=== PATIENT | male | born 1930 | race Caucasian/White ===

== ENCOUNTER 2016-12-15 11:36 | Inpatient (IN) | payer MEDICARE, OTHER ==
[2016-12-15] MEDS ORDERED: Docusate Sodium 100 MG Cap PO PRN (14:43)
[2016-12-15] MEDS ORDERED: Sodium Chloride 0.9% 10 ML Syringe FLUSH PRN (14:43)
[2016-12-15] MEDS ORDERED: Albuterol 0.083% 2.5 MG/3 ML Neb Soln NEB PRN (14:47)
[2016-12-15] MEDS ORDERED: Levofloxacin/Dextrose 5%-Water 250 MG in Premix Bag 1 BAG IV SCH (15:00)
[2016-12-15 15:13] LABS: BICARBONATE,ARTERIAL 22.1 mm/L (22.0-26.0); O2 DELIVERY DEVICE NASAL CANNULA; O2 SATURATION ARTERIAL 97 % (95-98); PCO2 ARTERIAL 28 mm/Hg0 (35-45); PO2 ARTERIAL 79 mm/Hg (80-100)
[2016-12-15] MEDS ORDERED: Albuterol/Ipratropium 3.0-0.5 MG/3 ML Neb Soln ONE (15:55)
[2016-12-15] MEDS: Atenolol 50 MG Tab PO SCH (19:33)
[2016-12-15] MEDS ORDERED: Acetaminophen 325 MG Tab PO PRN (19:35)
[2016-12-15] MEDS: BENZONATATE 200 MG PO SCH (19:58)
[2016-12-15] MEDS: Albuterol/Ipratropium 3.0-0.5 MG/3 ML Neb Soln NEB SCH (21:19)
[2016-12-15] MEDS: Enoxaparin 30 MG/0.3 ML Syringe SUBCUT SCH (21:19)
[2016-12-15] MEDS: Formoterol/Mometasone 200-5 MCG 8.8 GM Inhaler IH SCH (21:20)
[2016-12-16] MEDS: Levothyroxine 50 MCG Tab PO SCH (06:33)
[2016-12-16] MEDS: BENZONATATE 200 MG PO SCH ×3 (07:58→19:36)
[2016-12-16] MEDS: Atenolol 50 MG Tab PO SCH ×2 (07:59→19:36)
[2016-12-16] MEDS: amLODIPine 10 MG Tab PO SCH (07:59)
[2016-12-16] MEDS ORDERED: Tamsulosin 0.4 MG Cap.ER PO SCH ×2 (08:00→20:00)
--- NOTE | 2016-12-16 09:11 | PCM.PN ---
- General Info Date of Service: 12/16/16 Admission Dx/Problem (Free Text): COPD Exacerbation Functional Status: Reports: pain controlled, tolerating diet - Review of Systems General: Reports: Fever (low grade temp last evening.), Fatigue HEENT: Reports: rhinitis. Denies: sinus congestion Pulmonary: Reports: shortness of breath, cough, wheezing Cardiovascular: Denies: Chest Pain, Edema, Lightheadedness Gastrointestinal: Denies: Abdominal pain, Nausea, Vomiting Genitourinary: Reports: no symptoms Musculoskeletal: Reports: no symptoms Skin: Reports: no symptoms Neurological: Reports: No Symptoms - Patient Data Vitals - most recent: Last Vital Signs Temp 98.4 F 12/16/16 07:57 Pulse 68 12/16/16 07:57 Resp 18 12/16/16 07:57 BP 128/53 L 12/16/16 07:57 Pulse Ox 92 L 12/16/16 07:57 Weight - most recent: 151 lb 14.4 oz I&O - last 24 hours: Intake & Output 12/15/16 12/16/16 12/16/16 22:59 06:59 14:59 Intake Total 350 Balance 350 Lab Results last 24 hrs: Laboratory Results - last 24 hr 12/15/16 12/15/16 12/15/16 Range/Units 14:43 15:05 15:09 WBC 7.4 (5.0-10.0) 10^3/uL RBC 4.24 L (4.50-6.00) 10^6/uL Hgb 12.7 L (14.0-18.0) g/dL Hct 38.4 L (40.0-54.0) % MCV 90.6 (82.0-94.0) fL MCH 30.0 (27.0-32.0) pg MCHC 33.1 (33.0-38.0) g/dL RDW Coeff of Flor 19.2 H (11.0-15.0) % Plt Count 118 L (150-400) 10^3/uL Neut % (Auto) 67.4 (35-85) % Lymph % (Auto) 19.7 (10-55) % Hardin % (Auto) 6.2 (0-16) % Eos % (Auto) 6.2 H (0-5) % Baso % (Auto) 0.5 (0-3) % Neut # (Auto) 4.99 (1.80-7.00) 10^3/uL Lymph # (Auto) 1.46 (1.00-4.80) 10^3/uL Hardin # (Auto) 0.46 (0.00-0.80) 10^3/uL Eos # (Auto) 0.46 H (0.00-0.45) 10^3/uL Baso # (Auto) 0.04 10^3/uL ABG pH 7.51 H (7.35-7.45) ABG pCO2 28 L (35-45) mm/Hg0 ABG pO2 79 L (80-100) mm/Hg ABG HCO3 22.1 (22.0-26.0) mm/L ABG O2 Saturation 97 (95-98) % ABG Base Excess -1.0 (-2.0-3.0) O2 Delivery Device Nasal cannula Sodium 142 (136-145) mEq/L Potassium 4.6 (3.5-5.0) mEq/L Chloride 105 (98-106) mEq/L Carbon Dioxide 29 (21-32) mmol/L BUN 19 H (7-18) mg/dL Creatinine 1.7 H (0.7-1.3) mg/dL Est Cr Clr Drug Dosing 25.10 mL/min Estimated GFR (MDRD) 38 L (>=60) mL/min Glucose 106 H (75-99) mg/dL Calcium 9.4 (8.4-10.1) mg/dL C-Reactive Protein 1.0 H (0.2-0.8) mg/dL [id number] Pept 510 (0-1000) pg/nL Med Orders - Current: Current Medications Acetaminophen (Tylenol) 650 mg PO Q4H PRN PRN Reason: Fever Last Admin: 12/15/16 19:58 Dose: 650 mg Albuterol (Proventil Neb Soln) 2.5 mg NEB Q4H PRN PRN Reason: Dyspnea Albuterol/Ipratropium (Duoneb 3.0-0.5 Mg/3 Ml) 3 ml NEB TIDRT [facility] Last Admin: 12/15/16 21:19 Dose: 3 ml Amlodipine Besylate (Norvasc) 10 mg PO DAILY [facility] Last Admin: 12/16/16 07:59 Dose: 10 mg Atenolol (Tenormin) 50 mg PO BID [facility] Last Admin: 12/16/16 07:59 Dose: 50 mg Docusate Sodium (Colace) 100 mg PO BID PRN PRN Reason: Constipation Enoxaparin Sodium (Lovenox) 30 mg SUBCUT Q24H [facility] Last Admin: 12/15/16 21:19 Dose: 30 mg Levofloxacin/Dextrose 250 mg/ (Premix) 50 mls @ 50 mls/hr IV Q24H [facility] Levothyroxine Sodium (Synthroid) 50 mcg PO ACBRK [facility] Last Admin: 12/16/16 06:33 Dose: 50 mcg Mometasone Furoate/Formoterol Fumar (Dulera 200-5 Mcg) 2 puff IH BIDRT [facility] Last Admin: 12/15/16 21:20 Dose: 2 puff Ptom(Benzonatate [ (Benzonatate] 200 Mg)) 200 mg PO TID [facility] Last Admin: 12/16/16 07:58 Dose: Not Given Sodium Chloride (Saline Flush) 10 ml FLUSH ASDIRECTED PRN PRN Reason: Keep Vein Open Discontinued Medications Albuterol/Ipratropium (Duoneb 3.0-0.5 Mg/3 Ml) Confirm Administered Dose 3 ml .ROUTE .STK-MED ONE Stop: 12/15/16 15:56 Last Admin: 12/15/16 16:07 Dose: 3 ml Levofloxacin/Dextrose 250 mg/ (Premix) 50 mls @ 50 mls/hr IV Q24H [facility] Stop: 12/15/16 18:00 Last Admin: 12/15/16 15:43 Dose: 50 mls/hr - Exam General: alert, oriented HEENT: Mucous membr. moist/pink Neck: supple Lungs: Decreased breath sounds, Wheezing Cardiovascular: Regular Rate, Regular Rhythm Abdomen: bowel sounds present, soft, no tenderness Extremities: no edema Skin: warm, dry Neurological: no new focal deficit - Problem List & Annotations (1) COPD, Mild chronic obstructive pulmonary disease SNOMED Code(s): 980626943 Code(s): J44.9 - CHRONIC OBSTRUCTIVE PULMONARY DISEASE, UNSPECIFIED Status : Acute Priority: High Current Visit: No - Problem List Review Problem List Initiated/Reviewed/Updated: Yes - Assessment Assessment:: COPD Exacerbation - Plan Plan:: Patient states feeling better today. Does continue to complain of cough, mild shortness of breath at times. Appetite good. Admit labs reviewed. WBC 7.4, CRP 1.0, creatinine stable at 1.7. ProBNP at 510. Will continue RT treatments and IV Levaquin. Encourage ambulation. Possible discharge tomorrow.
[2016-12-16] MEDS: Albuterol/Ipratropium 3.0-0.5 MG/3 ML Neb Soln NEB SCH ×3 (10:05→20:42)
[2016-12-16] MEDS: Formoterol/Mometasone 200-5 MCG 8.8 GM Inhaler IH SCH ×2 (10:06→20:42)
[2016-12-16] MEDS ORDERED: Codeine/Promethazine 10-6.25 MG/5 ML Syrup 5 ML UD Cup PO PRN (15:19)
[2016-12-16] MEDS ORDERED: Levofloxacin/Dextrose 5%-Water 250 MG in Premix Bag 1 BAG IV SCH (20:00)
[2016-12-16] MEDS: Enoxaparin 30 MG/0.3 ML Syringe SUBCUT SCH (20:42)
[2016-12-17] MEDS: Levothyroxine 50 MCG Tab PO SCH (06:48)
[2016-12-17] MEDS: Atenolol 50 MG Tab PO SCH (08:01)
[2016-12-17] MEDS: amLODIPine 10 MG Tab PO SCH (08:01)
[2016-12-17] MEDS: BENZONATATE 200 MG PO SCH (08:01)
[2016-12-17] MEDS: Formoterol/Mometasone 200-5 MCG 8.8 GM Inhaler IH SCH (09:36)
[2016-12-17] MEDS: Albuterol/Ipratropium 3.0-0.5 MG/3 ML Neb Soln NEB SCH (09:36)
[2016-12-17 11:43] VITALS: BP 111/65
--- NOTE | 2016-12-17 15:00 | PCM.DCSUM1 ---
Discharge Summary - Hospital Course Free Text/Narrative:: Patient admitted by Dr. Montejo with COPD Exacerbation. Was noted to have increased wheezing with decreased air exchange. Admitted and started on IV Levaquin and nebulizer treatments. Initial labs were stable, WBC normal. CRP 1.0. BNP 510. Chest xray completed without notable pneumonia. - Discharge Data Discharge Date: 12/17/16 Discharge Disposition: Home, Self-Care 01 Condition: Fair - Discharge Diagnosis/Problem(s) (1) COPD, Mild chronic obstructive pulmonary disease SNOMED Code(s): 909361285 ICD Code: J44.9 - CHRONIC OBSTRUCTIVE PULMONARY DISEASE, UNSPECIFIED Status : Acute Priority: High Current Visit: No - Patient Summary/Data Complications: none Consults: Consultations 12/15/16 14:43 Respiratory Care Assess and Treatment [CONS] Routine Hospital Course: Patient has done well during stay. Vital signs stable. Did run low grade temp of 99.9. Did have good improvement of air exchange. No longer noted to have wheezing. Tolerating his usual activity. Appetite good. had been concerned about nocturia and flow and patient was started on Flomax. As he has been having ongoing issues with shortness of breath and cough, Daliresp was advised and patient will start this on discharge. Continue all other usual meds. - Patient Instructions Diet: Usual Diet as Tolerated Activity: As Tolerated - Discharge Plan Prescriptions/Med Rec: Roflumilast [Daliresp] 500 mcg PO DAILY #30 tablet Tamsulosin [Flomax] 0.4 mg PO BEDTIME #30 cap.er Home Medications: Home Meds Ipratropium/Albuterol Sulfate [Duoneb 0.5 mg-3 mg/3 ml Soln] 3 ml NEB TID [History] Atenolol [Tenormin] 50 mg PO BID 07/11/16 [History] Benzonatate 200 mg PO TID 12/15/16 [History] Budesonide/Formoterol [Symbicort 160-4.5 MCG] 2 inh INH BID 12/15/16 [History] Levothyroxine Sodium [Levoxyl] 50 mcg PO DAILY 12/15/16 [History] amLODIPine [Norvasc] 10 mg PO DAILY 12/15/16 [History] Roflumilast [Daliresp] 500 mcg PO DAILY #30 tablet 12/17/16 [Rx] Tamsulosin [Flomax] 0.4 mg PO BEDTIME #30 cap.er 12/17/16 [Rx] Patient Handouts: Chronic Obstructive Pulmonary Disease Exacerbation, Easy-to- Read, Chronic Obstructive Pulmonary Disease, [id number] Referrals: Flako Montejo MD [Primary Care Provider] - (See Dr. Montejo in one week) - Discharge Summary/Plan Comment DC Time >30 min.: No Discharge Summary/Plan Comment: Discharge home. Continue usual meds. Start Daliresp and Flomax. Follow up with Dr. Montejo in one week. - General Info Date of Service: 12/17/16 Admission Dx/Problem (Free Text: COPD Exacerbation Functional Status: Reports: pain controlled, tolerating diet - Review of Systems General: Reports: Weakness. Denies: Fever HEENT: Denies: ear pain, sinus congestion, sore throat Pulmonary: Denies: shortness of breath, cough, wheezing Cardiovascular: Denies: Chest Pain, Edema, Lightheadedness Gastrointestinal: Denies: Abdominal pain, Decreased appetite, Nausea, Vomiting Genitourinary: Reports: frequency Musculoskeletal: Reports: no symptoms Skin: Reports: no symptoms Neurological: Reports: No Symptoms Psychiatric: Reports: no symptoms - Patient Data Vitals - Most Recent: Last Vital Signs Temp 97.5 F 12/17/16 11:43 Pulse 68 12/17/16 11:43 Resp 16 12/17/16 11:43 BP 111/65 12/17/16 11:43 Pulse Ox 94 L 12/17/16 11:43 Weight - Most Recent: 151 lb 14.4 oz I&O - Last 24 hours: Intake & Output 12/16/16 12/17/16 12/17/16 22:59 06:59 14:59 Intake Total 560 Balance 560 Med Orders - Current: Current Medications Acetaminophen (Tylenol) 650 mg PO Q4H PRN PRN Reason: Fever Last Admin: 12/15/16 19:58 Dose: 650 mg Albuterol (Proventil Neb Soln) 2.5 mg NEB Q4H PRN PRN Reason: Dyspnea Albuterol/Ipratropium (Duoneb 3.0-0.5 Mg/3 Ml) 3 ml NEB TIDRT [facility] Last Admin: 12/17/16 09:36 Dose: 3 ml Amlodipine Besylate (Norvasc) 10 mg PO DAILY [facility] Last Admin: 12/17/16 08:01 Dose: 10 mg Atenolol (Tenormin) 50 mg PO BID [facility] Last Admin: 12/17/16 08:01 Dose: 50 mg Docusate Sodium (Colace) 100 mg PO BID PRN PRN Reason: Constipation Enoxaparin Sodium (Lovenox) 30 mg SUBCUT Q24H [facility] Last Admin: 12/16/16 20:42 Dose: 30 mg Levofloxacin/Dextrose 250 mg/ (Premix) 50 mls @ 50 mls/hr IV Q24H [facility] Last Admin: 12/16/16 19:36 Dose: 50 mls/hr Levothyroxine Sodium (Synthroid) 50 mcg PO ACBRK [facility] Last Admin: 12/17/16 06:48 Dose: 50 mcg Mometasone Furoate/Formoterol Fumar (Dulera 200-5 Mcg) 2 puff IH BIDRT [facility] Last Admin: 12/17/16 09:36 Dose: 2 puff Ptom(Benzonatate [ (Benzonatate] 200 Mg)) 200 mg PO TID [facility] Last Admin: 12/17/16 08:01 Dose: Not Given Promethazine HCl/Codeine (Phenergan With Codeine) 10 ml PO Q6H PRN PRN Reason: Cough Sodium Chloride (Saline Flush) 10 ml FLUSH ASDIRECTED PRN PRN Reason: Keep Vein Open Tamsulosin HCl (Flomax) 0.4 mg PO BEDTIME [facility] Last Admin: 12/16/16 19:36 Dose: 0.4 mg Discontinued Medications Albuterol/Ipratropium (Duoneb 3.0-0.5 Mg/3 Ml) Confirm Administered Dose 3 ml .ROUTE .STK-MED ONE Stop: 12/15/16 15:56 Last Admin: 12/15/16 16:07 Dose: 3 ml Levofloxacin/Dextrose 250 mg/ (Premix) 50 mls @ 50 mls/hr IV Q24H [facility] Stop: 12/15/16 18:00 Last Admin: 12/15/16 15:43 Dose: 50 mls/hr - Exam General: Reports: alert, cooperative HEENT: Reports: Mucous membr. moist/pink Neck: Reports: supple Lungs: Reports: Clear to auscultation, Normal respiratory effort Cardiovascular: Reports: Regular Rate, Regular Rhythm Abdomen: Reports: bowel sounds present, soft, no tenderness Extremities: Reports: no edema Skin: Reports: warm, dry Neurological: Reports: no new focal deficit *Q Meaningful Use (DIS) - VTE *Q VTE Criteria *Q: - Stroke *Q Stroke Criteria *Q: - AMI *Q AMI Criteria *Q:
== END 2016-12-17 13:30 | disposition home or self-care (01) | DRG 192 ==
LOC: UNDOADMIN 12:21 → CC.MS 12:21 → UNDOADMIN 14:43
PROVIDERS: ADMIT Family Medicine; ATTEND Family Medicine
DX: J44.1 Chronic obstructive pulmonary disease with (acute) exacerbation (principal); R35.1 Nocturia; E03.9 Hypothyroidism, unspecified; K44.9 Diaphragmatic hernia without obstruction or gangrene; I10 Essential (primary) hypertension; M19.90 Unspecified osteoarthritis, unspecified site
CPT/HCPCS: 36415; 36600; 71020; 80048; 82803; 83880; 85025; 86140; 94640; 94640-76; A9270-GY; J1650; J1956

== ENCOUNTER 2016-12-19 15:51 | Emergency (ER) | payer MEDICARE, OTHER ==
[~2016-12-19 15:51] MED LIST: traMADol 50 MG Tab PO ONE
[2016-12-19 15:59] VITALS: BP 157/76
--- NOTE | 2016-12-19 16:34 | EDM.PDOC ---
[id number] Gastrointestinal Problem Stated Complaint: left lower abd pain Time Seen by Provider: 12/19/16 16:20 - Related Data Allergies/ADRs: Allergies Allergy/AdvReac Type Severity Reaction Status Date / Time lisinopril Allergy Cough Verified 12/19/16 15:59 Home Meds: Home Meds Ipratropium/Albuterol Sulfate [Duoneb 0.5 mg-3 mg/3 ml Soln] 3 ml NEB TID [History] Atenolol [Tenormin] 50 mg PO BID 07/11/16 [History] Benzonatate 200 mg PO TID 12/15/16 [History] Budesonide/Formoterol [Symbicort 160-4.5 MCG] 2 inh INH BID 12/15/16 [History] Levothyroxine Sodium [Levoxyl] 50 mcg PO DAILY 12/15/16 [History] amLODIPine [Norvasc] 10 mg PO DAILY 12/15/16 [History] Tamsulosin [Flomax] 0.4 mg PO BEDTIME #30 cap.er 12/17/16 [Rx] ED EXAM, GI/ABD - Physical Exam Exam: See Below (CT showed no acute issues. 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 Will send home with Fleets enema for gas seen on CT, and Tramadol for acute pain) Exam Limited By: No limitations General Appearance: alert, moderate distress Course - Vital Signs Last Recorded V/S: Last Vital Signs Temp 99.2 F 12/19/16 15:54 Pulse 77 12/19/16 15:54 Resp 20 12/19/16 15:54 BP 157/76 H 12/19/16 15:54 Pulse Ox 95 12/19/16 15:54 - Orders/Labs/Meds Labs: Laboratory Tests 12/19/16 12/19/16 12/19/16 Range/Units 16:10 16:10 19:52 WBC 7.4 (5.0-10.0) 10^3/uL RBC 4.27 L (4.50-6.00) 10^6/uL Hgb 12.9 L (14.0-18.0) g/dL Hct 37.8 L (40.0-54.0) % MCV 88.5 (82.0-94.0) fL MCH 30.2 (27.0-32.0) pg MCHC 34.1 (33.0-38.0) g/dL RDW Coeff of Flor 19.1 H (11.0-15.0) % Plt Count 131 L (150-400) 10^3/uL Add Manual Diff Yes Neutrophils % (Manual) 72 (35-85) % Band Neutrophils % 2 (0-5) % Lymphocytes % (Manual) 15 L (21-55) % Monocytes % (Manual) 8 (2-12) % Eosinophils % (Manual) 3 (0-5) % Absolute Neutrophils 5.48 (1.80-7.00) 10^3/uL Lymphocytes # (Manual) 1.11 (1.00-4.80) 10^3/uL Monocytes # (Manual) 0.59 (0.00-0.80) 10^3/uL Eosinophils # (Manual) 0.22 (0.00-0.45) 10^3/uL Sodium 139 (136-145) mEq/L Potassium 4.2 (3.5-5.0) mEq/L Chloride 105 (98-106) mEq/L Carbon Dioxide 26 (21-32) mmol/L BUN 28 H (7-18) mg/dL Creatinine 1.6 H (0.7-1.3) mg/dL Est Cr Clr Drug Dosing 26.67 mL/min Estimated GFR (MDRD) 41 L (>=60) mL/min Glucose 114 H (75-99) mg/dL Calcium 9.5 (8.4-10.1) mg/dL C-Reactive Protein 2.0 H (0.2-0.8) mg/dL Urine Color Yellow (YELLOW) Urine Appearance Clear (CLEAR) Urine pH 5.5 (4.5-8.0) Ur Specific Anderson 1.011 (1.003-1.020) Urine Protein Negative (NEGATIVE) mg/dL Urine Glucose (UA) Negative (NEGATIVE) mg/dL Urine Ketones Negative (NEGATIVE) mg/dL Urine Occult Blood Negative (NEGATIVE) Urine Nitrite Negative (NEGATIVE) Urine Bilirubin Negative (NEGATIVE) Urine Urobilinogen 0.2 (0.2-1.0) EU/dL Ur Leukocyte Esterase Trace H (NEGATIVE) Urine RBC Not seen (0-5) /HPF Urine WBC 0-5 (0-5) /HPF Ur Squamous Epith Cells Occasional H (NOT SEEN) /HPF Urine Bacteria Occasional H (NOT SEEN) /HPF Meds: Medications Discontinued Medications Generic Name Dose Route Start Last Admin Trade Name Anabel PRN Reason Stop Dose Admin Hydromorphone HCl 1 mg 12/19/16 16:58 12/19/16 17:06 Dilaudid IVPUSH 12/19/16 16:59 1 mg ONETIME ONE Administration Iopamidol 100 ml 12/19/16 17:05 Isovue-300 (61%) IVPUSH 12/19/16 17:06 ONETIME ONE Ondansetron HCl 4 mg 12/19/16 16:59 12/19/16 17:03 Zofran IVPUSH 12/19/16 17:00 4 mg ONETIME ONE Administration Tramadol HCl 2 packet 12/19/16 20:51 12/19/16 21:10 Take Home: Tramadol 50 Mg, 4 Tab Pack PO 12/19/16 20:52 2 packet ONETIME ONE Administration Departure - Departure Time of Disposition: 20:55 (No acute abnormalities noted on CT) Disposition: Home, Self-Care 01 Condition: fair Clinical Impression: Gas pain Referrals: Georgie Grover PA-C [Primary Care Provider] - Additional Instructions: Will send home with Fleets enema to be given per rectum at home to relive gas pain. Insert lubricated tip into rectum slowly, and squeeze contents of bottle until empty. Please call home health nurse for any questions or concernes. <Georgie Grover - Last Filed: 12/22/16 07:24> ED HPI GI/ABDOMINAL - General Source of Information: Reports: Patient, Family () History Limitations: Reports: No limitations - History of Present Illness INITIAL COMMENTS - FREE TEXT/NARRATIVE: States that he has been having some low left sided abdominal pain for the last couple of days. It comes and goes for no reason. It is most of the left side on the lower half. Did have normal bowel movement this morning. Has history of hernia repair on that side. Pain will go down into the left groin and upper thigh at times. At times the pain is a 10 and at times it is 1. No diarrhea or constipation noted. No fever but states he will have chills at times. No vomiting and has not had a good appetite for several months. Timing/Duration: Reports: Day(s):, Intermittent Location: LLQ Quality: Reports: stabbing, radiating Associated Symptoms: Reports: loss of appetite. Denies: back pain, testicular pain, constipation, diarrhea, nausea/vomiting Past Medical History HEENT History: Reports: Cataract, Macular degeneration Cardiovascular History: Reports: None Respiratory History: Reports: COPD Gastrointestinal History: Reports: Bowel obstruction Genitourinary History: Reports: UTI, recurrent Musculoskeletal History: Reports: None Neurological History: Reports: Alzheimers disease Psychiatric History: Reports: Dementia, Depression Endocrine/Metabolic History: Reports: None Hematologic History: Reports: None Immunologic History: Reports: None Oncologic (Cancer) History: Reports: None Dermatologic History: Reports: None - Past Surgical History GI Surgical History: Reports: Hernia, inguinal Social & Family History - Family History Family Medical History: Unobtainable - Tobacco Use Smoking Status *Q: Never Smoker Years of Tobacco use: 40 Packs/Tins Daily: 1 Used Tobacco, but Quit: Yes Month Tobacco Last Used: 12/1981 - Caffeine Use Caffeine Use: Reports: None - Alcohol Use Days Per Week of Alcohol Use: 7 Number of Drinks Per Day: 1 Total Drinks Per Week: 7 - Recreational Drug Use Recreational Drug Use: No ED ROS GENERAL - Review of Systems Review Of Systems: See Below Constitutional: Reports: chills, weakness. Denies: fever Respiratory: Denies: Shortness of Breath, Cough Cardiovascular: Denies: Chest pain, Edema GI/Abdominal: Reports: Abdominal pain. Denies: Constipation, Diarrhea, Nausea, Vomiting : Denies: dysuria, flank pain Skin: Denies: bruising, rash Psychiatric: Denies: Confusion ED EXAM, GI/ABD - Physical Exam Exam: See Below Exam Limited By: No limitations General Appearance: alert, moderate distress Nose: normal inspection Throat/Mouth: No airway compromise Head: atraumatic, normocephalic Neck: normal inspection Respiratory/Chest: no respiratory distress, lungs clear, normal breath sounds Cardiovascular: regular rate, rhythm GI/Abdominal: normal bowel sounds, soft, tenderness (to the left upper and lower. More the left lower. No guarding or rigidity. No masses appreciated.) Extremities: no pedal edema Neurological: alert, oriented Skin Exam: Warm, Dry, Intact Course - Orders/Labs/Meds Labs: Laboratory Tests 12/19/16 12/19/16 12/19/16 Range/Units 16:10 16:10 19:52 WBC 7.4 (5.0-10.0) 10^3/uL RBC 4.27 L (4.50-6.00) 10^6/uL Hgb 12.9 L (14.0-18.0) g/dL Hct 37.8 L (40.0-54.0) % MCV 88.5 (82.0-94.0) fL MCH 30.2 (27.0-32.0) pg MCHC 34.1 (33.0-38.0) g/dL RDW Coeff of Flor 19.1 H (11.0-15.0) % Plt Count 131 L (150-400) 10^3/uL Add Manual Diff Yes Neutrophils % (Manual) 72 (35-85) % Band Neutrophils % 2 (0-5) % Lymphocytes % (Manual) 15 L (21-55) % Monocytes % (Manual) 8 (2-12) % Eosinophils % (Manual) 3 (0-5) % Absolute Neutrophils 5.48 (1.80-7.00) 10^3/uL Lymphocytes # (Manual) 1.11 (1.00-4.80) 10^3/uL Monocytes # (Manual) 0.59 (0.00-0.80) 10^3/uL Eosinophils # (Manual) 0.22 (0.00-0.45) 10^3/uL Sodium 139 (136-145) mEq/L Potassium 4.2 (3.5-5.0) mEq/L Chloride 105 (98-106) mEq/L Carbon Dioxide 26 (21-32) mmol/L BUN 28 H (7-18) mg/dL Creatinine 1.6 H (0.7-1.3) mg/dL Est Cr Clr Drug Dosing 26.67 mL/min Estimated GFR (MDRD) 41 L (>=60) mL/min Glucose 114 H (75-99) mg/dL Calcium 9.5 (8.4-10.1) mg/dL C-Reactive Protein 2.0 H (0.2-0.8) mg/dL Urine Color Yellow (YELLOW) Urine Appearance Clear (CLEAR) Urine pH 5.5 (4.5-8.0) Ur Specific Anderson 1.011 (1.003-1.020) Urine Protein Negative (NEGATIVE) mg/dL Urine Glucose (UA) Negative (NEGATIVE) mg/dL Urine Ketones Negative (NEGATIVE) mg/dL Urine Occult Blood Negative (NEGATIVE) Urine Nitrite Negative (NEGATIVE) Urine Bilirubin Negative (NEGATIVE) Urine Urobilinogen 0.2 (0.2-1.0) EU/dL Ur Leukocyte Esterase Trace H (NEGATIVE) Urine RBC Not seen (0-5) /HPF Urine WBC 0-5 (0-5) /HPF Ur Squamous Epith Cells Occasional H (NOT SEEN) /HPF Urine Bacteria Occasional H (NOT SEEN) /HPF Meds: Medications Discontinued Medications Generic Name Dose Route Start Last Admin Trade Name Freq PRN Reason Stop Dose Admin Hydromorphone HCl 1 mg 12/19/16 16:58 12/19/16 17:06 Dilaudid IVPUSH 12/19/16 16:59 1 mg ONETIME ONE Administration Iopamidol 100 ml 12/19/16 17:05 Isovue-300 (61%) IVPUSH 12/19/16 17:06 ONETIME ONE Ondansetron HCl 4 mg 12/19/16 16:59 12/19/16 17:03 Zofran IVPUSH 12/19/16 17:00 4 mg ONETIME ONE Administration Tramadol HCl 2 packet 12/19/16 20:51 12/19/16 21:10 Take Home: Tramadol 50 Mg, 4 Tab Pack PO 12/19/16 20:52 2 packet ONETIME ONE Administration - Re-Assessments/Exams Free Text/Narrative Re-Assessment/Exam: 12/19/16 16:51 report given to ABBI Flores. Pt will be prepping for CT abdomen/ pelvis
[2016-12-19] MEDS ORDERED: HYDROmorphone 1 MG/ML Syringe IVPUSH ONE (16:58)
[2016-12-19] MEDS ORDERED: Ondansetron 4 MG/2 ML SDV IVPUSH ONE (16:59)
[2016-12-19] MEDS ORDERED: Iopamidol 612 MG/ML 100 ML Bottle IVPUSH ONE (17:05)
[2016-12-19] MEDS ORDERED: Take Home: traMADol 50 MG, 4 Tab Pack PO ONE (20:51)
== END 2016-12-19 21:15 | disposition home or self-care (01) ==
LOC: CC.ED 15:51
DX: R14.1 Gas pain (principal); J44.9 Chronic obstructive pulmonary disease, unspecified; G30.9 Alzheimer's disease, unspecified; F02.80 Dementia in other diseases classified elsewhere, unspecified severity, without behavioral disturbance, psychotic disturbance, mood disturbance, and anxiety; F32.9 Major depressive disorder, single episode, unspecified; Z88.8 Allergy status to other drugs, medicaments and biological substances; Z79.899 Other long term (current) drug therapy; Z87.440 Personal history of urinary (tract) infections
CPT/HCPCS: 36415; 74020; 74177; 80048; 81001; 85025; 86140; 96374; 96375; 99284; A9270; J1170; J2405; Q9967; 99283

== ENCOUNTER 2017-01-09 15:15 | Inpatient (IN) | payer MEDICARE, OTHER ==
[2017-01-09] MEDS ORDERED: Sodium Chloride 0.9% 10 ML Syringe FLUSH PRN (16:04)
[2017-01-09] MEDS ORDERED: Morphine 2 MG/ML Syringe IVPUSH PRN (16:04)
[2017-01-09] MEDS ORDERED: Temazepam 15 MG Cap PO PRN (16:04)
[2017-01-09] MEDS ORDERED: Ondansetron 4 MG/2 ML SDV IV PRN (16:04)
[2017-01-09] MEDS ORDERED: Ondansetron 4 MG Tab.DIS PO PRN (16:04)
[2017-01-09] MEDS ORDERED: BENZONATATE 200 MG PO PRN (16:14)
[2017-01-09] MEDS ORDERED: Pantoprazole 40 MG Vial IVPUSH SCH (16:15)
[2017-01-09] MEDS ORDERED: Lactated Ringers 1,000 ML IV SCH (16:15)
[2017-01-09] MEDS ORDERED: Enoxaparin 30 MG/0.3 ML Syringe SUBCUT SCH ×2 (16:15→20:00)
[2017-01-09] MEDS ORDERED: Pantoprazole 40 MG Vial IVPUSH ONE (16:45)
[2017-01-09] MEDS: Sodium Chloride 0.9% 1,000 ML IV SCH (20:00)
[2017-01-09] MEDS ORDERED: Non-Formulary Medication 1 Each (Budesonide/Formoterol 2 INH) INH SCH (20:00)
[2017-01-09] MEDS: Atenolol 50 MG Tab PO SCH (21:55)
[2017-01-09] MEDS: Tamsulosin 0.4 MG Cap.ER PO SCH (21:56)
[2017-01-09] MEDS: Formoterol/Mometasone 200-5 MCG 8.8 GM Inhaler IH SCH (21:56)
[2017-01-09] MEDS: Albuterol/Ipratropium 3.0-0.5 MG/3 ML Neb Soln NEB SCH (21:58)
[2017-01-10] MEDS: Levothyroxine 50 MCG Tab PO SCH (07:37)
[2017-01-10] MEDS: Pantoprazole 40 MG Vial IVPUSH SCH ×2 (07:56→19:30)
[2017-01-10] MEDS: Enoxaparin 30 MG/0.3 ML Syringe SUBCUT SCH (08:03)
[2017-01-10] MEDS: Polyethylene Glycol 3350 Powder 17 GM Packet PO SCH (08:03)
[2017-01-10] MEDS: amLODIPine 10 MG Tab PO SCH (08:04)
[2017-01-10] MEDS: Atenolol 50 MG Tab PO SCH ×2 (08:05→19:30)
[2017-01-10] MEDS: Albuterol/Ipratropium 3.0-0.5 MG/3 ML Neb Soln NEB SCH ×3 (08:44→20:33)
[2017-01-10] MEDS: Formoterol/Mometasone 200-5 MCG 8.8 GM Inhaler IH SCH ×2 (08:44→20:33)
[2017-01-10] MEDS: Sodium Chloride 0.9% 1,000 ML IV SCH (11:19)
--- NOTE | 2017-01-10 14:23 | PCM.PN ---
- General Info Date of Service: 01/10/17 Functional Status: Reports: pain controlled, tolerating diet - Review of Systems General: Reports: No Symptoms HEENT: Reports: no symptoms Pulmonary: Reports: no symptoms Cardiovascular: Reports: No Symptoms Gastrointestinal: Reports: Abdominal pain Genitourinary: Reports: no symptoms Musculoskeletal: Reports: no symptoms Skin: Reports: no symptoms Neurological: Reports: No Symptoms Psychiatric: Reports: no symptoms - Patient Data Vitals - most recent: Last Vital Signs Temp 99.1 F 01/10/17 12:00 Pulse 73 01/10/17 12:00 Resp 20 01/10/17 12:00 BP 108/51 L 01/10/17 12:00 Pulse Ox 94 L 01/10/17 12:00 Weight - most recent: 151 lb 14.4 oz I&O - last 24 hours: Intake & Output 01/09/17 01/10/17 01/10/17 22:59 06:59 14:59 Intake Total 663 757 5753 Output Total 300 1050 250 Balance 600 -193 1346 Lab Results last 24 hrs: Laboratory Results - last 24 hr 01/09/17 01/09/17 01/09/17 Range/Units 16:22 16:22 17:45 WBC (5.0-10.0) 10^3/uL RBC (4.50-6.00) 10^6/uL Hgb (14.0-18.0) g/dL Hct (40.0-54.0) % MCV (82.0-94.0) fL MCH (27.0-32.0) pg MCHC (33.0-38.0) g/dL RDW Coeff of Flor (11.0-15.0) % Plt Count (150-400) 10^3/uL Neut % (Auto) (35-85) % Lymph % (Auto) (10-55) % [place]isco[place] % (Auto) (0-16) % Eos % (Auto) (0-5) % Baso % (Auto) (0-3) % Neut # (Auto) (1.80-7.00) 10^3/uL Lymph # (Auto) (1.00-4.80) 10^3/uL [place] # (Auto) (0.00-0.80) 10^3/uL Eos # (Auto) (0.00-0.45) 10^3/uL Baso # (Auto) 10^3/uL PT 11.9 (9.7-12.3) SEC INR 1.10 (0.92-1.18) Sodium 141 (136-145) mEq/L Potassium 4.5 (3.5-5.0) mEq/L Chloride 104 (98-106) mEq/L Carbon Dioxide 28 (21-32) mmol/L BUN 32 H (7-18) mg/dL Creatinine 1.9 H (0.7-1.3) mg/dL Est Cr Clr Drug Dosing 22.46 mL/min Estimated GFR (MDRD) 34 L (>=60) mL/min Glucose 145 H D (75-99) mg/dL Calcium 8.6 (8.4-10.1) mg/dL Magnesium 2.0 (1.8-2.4) mg/dL Total Bilirubin 0.6 (0.0-1.0) mg/dL AST 41 H (15-37) U/L ALT 39 (12-78) U/L Alkaline Phosphatase 124 H (46-116) U/L C-Reactive Protein 0.3 (0.2-0.8) mg/dL Total Protein 6.4 (6.4-8.2) g/dL Albumin 2.9 L (3.4-5.0) g/dL TSH, Ultra Sensitive (0.36-5.60) uIU/mL Urine Color Yellow (YELLOW) Urine Appearance Clear (CLEAR) Urine pH 6.5 (4.5-8.0) Ur Specific [place] 1.009 (1.003-1.020) Urine Protein Negative (NEGATIVE) mg/dL Urine Glucose (UA) Negative (NEGATIVE) mg/dL Urine Ketones Negative (NEGATIVE) mg/dL Urine Occult Blood Negative (NEGATIVE) Urine Nitrite Negative (NEGATIVE) Urine Bilirubin Negative (NEGATIVE) Urine Urobilinogen 0.2 (0.2-1.0) EU/dL Ur Leukocyte Esterase Trace H (NEGATIVE) Urine RBC Not seen (0-5) /HPF Urine WBC 0-5 (0-5) /HPF Ur Epithelial Cells Few H (NOT SEEN) /HPF 01/10/17 01/10/17 Range/Units 06:50 06:50 WBC 6.6 (5.0-10.0) 10^3/uL RBC 3.35 L (4.50-6.00) 10^6/uL Hgb 10.2 L (14.0-18.0) g/dL Hct 31.1 L (40.0-54.0) % MCV 92.8 (82.0-94.0) fL MCH 30.4 (27.0-32.0) pg MCHC 32.8 L (33.0-38.0) g/dL RDW Coeff of Flor 18.6 H (11.0-15.0) % Plt Count 81 L (150-400) 10^3/uL Neut % (Auto) 59.1 (35-85) % Lymph % (Auto) 26.8 (10-55) % Briscoe % (Auto) 8.1 (0-16) % Eos % (Auto) 5.5 H (0-5) % Baso % (Auto) 0.5 (0-3) % Neut # (Auto) 3.88 (1.80-7.00) 10^3/uL Lymph # (Auto) 1.76 (1.00-4.80) 10^3/uL Briscoe # (Auto) 0.53 (0.00-0.80) 10^3/uL Eos # (Auto) 0.36 (0.00-0.45) 10^3/uL Baso # (Auto) 0.03 10^3/uL PT (9.7-12.3) SEC INR (0.92-1.18) Sodium 143 (136-145) mEq/L Potassium 4.4 (3.5-5.0) mEq/L Chloride 108 H (98-106) mEq/L Carbon Dioxide 28 (21-32) mmol/L BUN 27 H (7-18) mg/dL Creatinine 1.9 H (0.7-1.3) mg/dL Est Cr Clr Drug Dosing 22.46 mL/min Estimated GFR (MDRD) 34 L (>=60) mL/min Glucose 94 D (75-99) mg/dL Calcium 7.7 L (8.4-10.1) mg/dL Magnesium (1.8-2.4) mg/dL Total Bilirubin 0.6 (0.0-1.0) mg/dL AST 40 H (15-37) U/L ALT 33 (12-78) U/L Alkaline Phosphatase 97 (46-116) U/L C-Reactive Protein (0.2-0.8) mg/dL Total Protein 5.4 L (6.4-8.2) g/dL Albumin 2.5 L (3.4-5.0) g/dL TSH, Ultra Sensitive 3.85 (0.36-5.60) uIU/mL Urine Color (YELLOW) Urine Appearance (CLEAR) Urine pH (4.5-8.0) Ur Specific [place] (1.003-1.020) Urine Protein (NEGATIVE) mg/dL Urine Glucose (UA) (NEGATIVE) mg/dL Urine Ketones (NEGATIVE) mg/dL Urine Occult Blood (NEGATIVE) Urine Nitrite (NEGATIVE) Urine Bilirubin (NEGATIVE) Urine Urobilinogen (0.2-1.0) EU/dL Ur Leukocyte Esterase (NEGATIVE) Urine RBC (0-5) /HPF Urine WBC (0-5) /HPF Ur Epithelial Cells (NOT SEEN) /HPF Med Orders - Current: Current Medications Albuterol/Ipratropium (Duoneb 3.0-0.5 Mg/3 Ml) 3 ml NEB TIDRT [facility] [place] Last Admin: 01/10/17 08:44 Dose: 3 ml Amlodipine Besylate (Norvasc) 10 mg PO DAILY [facility] [place] Last Admin: 01/10/17 08:04 Dose: 10 mg Atenolol (Tenormin) 50 mg PO BID [facility] [place] Last Admin: 01/10/17 08:05 Dose: 50 mg Enoxaparin Sodium (Lovenox) 30 mg SUBCUT Q24H [facility] [place] Last Admin: 01/10/17 08:03 Dose: 30 mg Sodium Chloride (Normal Saline) 1,000 mls @ 65 mls/hr IV ASDIRECTED [facility] [place] Stop: 01/11/17 12:00 Last Admin: 01/10/17 11:19 Dose: 65 mls/hr Levothyroxine Sodium (Synthroid) 50 mcg PO ACBRK [facility] [place] Last Admin: 01/10/17 07:37 Dose: 50 mcg Mometasone Furoate/Formoterol Fumar (Dulera 200-5 Mcg) 0 puff IH BIDRT [facility] [place] Last Admin: 01/10/17 08:44 Dose: 2 puff Morphine Sulfate (Morphine) 2 mg IVPUSH Q2H PRN PRN Reason: Pain (severe 7-10) Last Admin: 01/09/17 17:00 Dose: 2 mg Ptom [Benzonatate] (200 Mg)) 200 mg PO TID PRN PRN Reason: Cough Ondansetron HCl (Zofran Odt) 4 mg PO Q4H PRN PRN Reason: nausea, able to take PO Ondansetron HCl (Zofran) 4 mg IV Q4H PRN PRN Reason: Nausea/Vomiting Last Admin: 01/09/17 17:01 Dose: 4 mg Pantoprazole Sodium (Protonix Iv) 40 mg IVPUSH BID [facility] [place] Last Admin: 01/10/17 07:56 Dose: 40 mg Polyethylene Glycol (Miralax) 17 gm PO DAILY [facility] [place] Last Admin: 01/10/17 08:03 Dose: 17 gm Sodium Chloride (Saline Flush) 10 ml FLUSH ASDIRECTED PRN PRN Reason: Keep Vein Open Tamsulosin HCl (Flomax) 0.4 mg PO BEDTIME [facility] [place] Last Admin: 01/09/17 21:56 Dose: 0.4 mg Temazepam (Restoril) 15 mg PO BEDTIME PRN PRN Reason: Sleep Tramadol HCl (Ultram) 50 - 100 mg PO Q6H PRN PRN Reason: Pain Discontinued Medications Enoxaparin Sodium (Lovenox) 30 mg SUBCUT Q24H [facility] [place] Last Admin: 01/09/17 17:00 Dose: Not Given Enoxaparin Sodium (Lovenox) 30 mg SUBCUT Q24H [facility] [place] Lactated Ringer's (Ringers, Lactated) 1,000 mls @ 100 mls/hr IV ASDIRECTED [facility] [place] Last Admin: 01/09/17 16:59 Dose: 100 mls/hr Pantoprazole Sodium (Protonix Iv) 40 mg IVPUSH ONETIME ONE Stop: 01/09/17 16:46 Last Admin: 01/09/17 17:04 Dose: 40 mg - Exam General: alert, oriented, cooperative, no acute distress Lungs: Clear to auscultation, Normal respiratory effort Cardiovascular: Regular Rate, Regular Rhythm Abdomen: bowel sounds present, soft, no distension, tenderness (LUQ) Back Exam: Normal Inspection, Full Range of Motion Extremities: no edema Peripheral Pulses: 2+: Posterior Tibial (L), Posterior Tibial (R), Dorsalis Pedis (L), Dorsalis Pedis (R) Skin: warm, dry, intact Neurological: no new focal deficit Psy/Mental Status: alert, normal affect, normal mood - Problem List Review Problem List Initiated/Reviewed/Updated: Yes - My Orders Last 24 Hours: My Active Orders 01/09/17 17:39 Abdomen Pelvis wo Cont [CT] Stat Chest wo Cont [CT] Routine 01/09/17 17:45 Sodium Chloride 0.9% [Normal Saline] 1,000 ml IV ASDIRECTED 01/11/17 05:00 CBC WITH AUTO DIFF [HEME] DAILY CMP [COMPREHENSIVE METABOLIC PN,CMP] [CHEM] DAILY 01/12/17 05:00 CBC WITH AUTO DIFF [HEME] DAILY CMP [COMPREHENSIVE METABOLIC PN,CMP] [CHEM] DAILY 01/13/17 05:00 CBC WITH AUTO DIFF [HEME] DAILY CMP [COMPREHENSIVE METABOLIC PN,CMP] [CHEM] DAILY - Plan Plan:: This patient is am 86 year old male that was admitted for abdominal pain and the not being able to care for him at home. The patient has history of dementia and is unsafe at home. Patient today is alert and oriented. The patient does report he continues to have left upper quad pain. Patient denies lugo , dizziness, n, v, d, f, urinary/bowel changes. Patient labs are unremarkable and unchanged from previous. CBC unremarkable. Bun yesterday was 32, today 27. CR yesterday was 1.9, today 1.9. Will continue same treatment plan of managing pain.
[2017-01-10] MEDS: traMADol 50 MG Tab PO PRN (15:31)
[2017-01-10] MEDS: Tamsulosin 0.4 MG Cap.ER PO SCH (19:30)
[2017-01-11] MEDS: Sodium Chloride 0.9% 1,000 ML IV SCH (03:09)
[2017-01-11] MEDS: Levothyroxine 50 MCG Tab PO SCH (07:13)
[2017-01-11] MEDS: Pantoprazole 40 MG Vial IVPUSH SCH ×2 (07:22→20:08)
[2017-01-11] MEDS: Polyethylene Glycol 3350 Powder 17 GM Packet PO SCH (07:25)
[2017-01-11] MEDS: Enoxaparin 30 MG/0.3 ML Syringe SUBCUT SCH (07:25)
[2017-01-11] MEDS: amLODIPine 10 MG Tab PO SCH (07:26)
[2017-01-11] MEDS: Atenolol 50 MG Tab PO SCH ×2 (07:26→20:08)
[2017-01-11] MEDS: traMADol 50 MG Tab PO PRN (07:26)
--- NOTE | 2017-01-11 08:15 | PCM.PN ---
- General Info Date of Service: 01/11/17 Functional Status: Reports: pain controlled (Patient reports his pain is improving. ) - Review of Systems General: Reports: No Symptoms HEENT: Reports: no symptoms Pulmonary: Reports: no symptoms Cardiovascular: Reports: No Symptoms Gastrointestinal: Reports: No symptoms Genitourinary: Reports: no symptoms Musculoskeletal: Reports: no symptoms Skin: Reports: no symptoms Neurological: Reports: No Symptoms Psychiatric: Reports: no symptoms - Patient Data Vitals - most recent: Last Vital Signs Temp 98.5 F 01/11/17 07:31 Pulse 71 01/11/17 07:31 Resp 20 01/11/17 07:31 BP 114/66 01/11/17 07:31 Pulse Ox 92 L 01/11/17 07:31 Weight - most recent: 155 lb 9.6 oz I&O - last 24 hours: Intake & Output 01/10/17 01/11/17 01/11/17 22:59 06:59 14:59 Intake Total 320 2603 Output Total 175 700 Balance 145 1903 Lab Results last 24 hrs: Laboratory Results - last 24 hr 01/11/17 01/11/17 Range/Units 07:20 07:20 WBC 6.4 (5.0-10.0) 10^3/uL RBC 3.41 L (4.50-6.00) 10^6/uL Hgb 10.2 L (14.0-18.0) g/dL Hct 31.8 L (40.0-54.0) % MCV 93.3 (82.0-94.0) fL MCH 29.9 (27.0-32.0) pg MCHC 32.1 L (33.0-38.0) g/dL RDW Coeff of Flor 18.7 H (11.0-15.0) % Plt Count 71 L (150-400) 10^3/uL Add Manual Diff Yes Neutrophils % (Manual) 69 (35-85) % Band Neutrophils % 5 (0-5) % Lymphocytes % (Manual) 22 (21-55) % Monocytes % (Manual) 2 (2-12) % Eosinophils % (Manual) 2 (0-5) % Absolute Neutrophils 4.74 (1.80-7.00) 10^3/uL Lymphocytes # (Manual) 1.41 (1.00-4.80) 10^3/uL Monocytes # (Manual) 0.13 (0.00-0.80) 10^3/uL Eosinophils # (Manual) 0.13 (0.00-0.45) 10^3/uL Platelet Estimate Decreased L (ADEQUATE) Sodium 142 (136-145) mEq/L Potassium 4.3 (3.5-5.0) mEq/L Chloride 108 H (98-106) mEq/L Carbon Dioxide 24 (21-32) mmol/L BUN 26 H (7-18) mg/dL Creatinine 1.8 H (0.7-1.3) mg/dL Est Cr Clr Drug Dosing 23.71 mL/min Estimated GFR (MDRD) 36 L (>=60) mL/min Glucose 96 (75-99) mg/dL Calcium 7.5 L (8.4-10.1) mg/dL Total Bilirubin 0.7 (0.0-1.0) mg/dL AST 41 H (15-37) U/L ALT 34 (12-78) U/L Alkaline Phosphatase 102 (46-116) U/L Total Protein 5.5 L (6.4-8.2) g/dL Albumin 2.5 L (3.4-5.0) g/dL Med Orders - Current: Current Medications Albuterol/Ipratropium (Duoneb 3.0-0.5 Mg/3 Ml) 3 ml NEB TIDRT [facility] Last Admin: 01/10/17 20:33 Dose: 3 ml Amlodipine Besylate (Norvasc) 10 mg PO DAILY [facility] Last Admin: 01/11/17 07:26 Dose: 10 mg Atenolol (Tenormin) 50 mg PO BID [facility] Last Admin: 01/11/17 07:26 Dose: 50 mg Enoxaparin Sodium (Lovenox) 30 mg SUBCUT Q24H [facility] Last Admin: 01/11/17 07:25 Dose: 30 mg Levothyroxine Sodium (Synthroid) 50 mcg PO ACBRK [facility] Last Admin: 01/11/17 07:13 Dose: 50 mcg Mometasone Furoate/Formoterol Fumar (Dulera 200-5 Mcg) 0 puff IH BIDRT [facility] Last Admin: 01/10/17 20:33 Dose: 2 puff Morphine Sulfate (Morphine) 2 mg IVPUSH Q2H PRN PRN Reason: Pain (severe 7-10) Last Admin: 01/09/17 17:00 Dose: 2 mg Ptom [Benzonatate] (200 Mg)) 200 mg PO TID PRN PRN Reason: Cough Ondansetron HCl (Zofran Odt) 4 mg PO Q4H PRN PRN Reason: nausea, able to take PO Ondansetron HCl (Zofran) 4 mg IV Q4H PRN PRN Reason: Nausea/Vomiting Last Admin: 01/09/17 17:01 Dose: 4 mg Pantoprazole Sodium (Protonix Iv) 40 mg IVPUSH BID [facility] Last Admin: 01/11/17 07:22 Dose: 40 mg Polyethylene Glycol (Miralax) 17 gm PO DAILY [facility] Last Admin: 01/11/17 07:25 Dose: 17 gm Sodium Chloride (Saline Flush) 10 ml FLUSH ASDIRECTED PRN PRN Reason: Keep Vein Open Tamsulosin HCl (Flomax) 0.4 mg PO BEDTIME [facility] Last Admin: 01/10/17 19:30 Dose: 0.4 mg Temazepam (Restoril) 15 mg PO BEDTIME PRN PRN Reason: Sleep Tramadol HCl (Ultram) 50 - 100 mg PO Q6H PRN PRN Reason: Pain Last Admin: 01/11/17 07:26 Dose: 100 mg Discontinued Medications Enoxaparin Sodium (Lovenox) 30 mg SUBCUT Q24H [facility] Last Admin: 01/09/17 17:00 Dose: Not Given Enoxaparin Sodium (Lovenox) 30 mg SUBCUT Q24H [facility] Lactated Ringer's (Ringers, Lactated) 1,000 mls @ 100 mls/hr IV ASDIRECTED [facility] Last Admin: 01/09/17 16:59 Dose: 100 mls/hr Sodium Chloride (Normal Saline) 1,000 mls @ 65 mls/hr IV ASDIRECTED [facility] Stop: 01/11/17 12:00 Last Admin: 01/11/17 03:09 Dose: 65 mls/hr Pantoprazole Sodium (Protonix Iv) 40 mg IVPUSH ONETIME ONE Stop: 01/09/17 16:46 Last Admin: 01/09/17 17:04 Dose: 40 mg - Exam General: alert, oriented, cooperative, no acute distress Neck: supple Lungs: Clear to auscultation, Normal respiratory effort Cardiovascular: Regular Rate, Regular Rhythm, No Murmurs Abdomen: soft, tenderness (mild LUQ. improved from yesterday), other (pain of the LUQ is worse with moving of the abdominal area. ) Back Exam: Normal Inspection, Full Range of Motion. No: CVA Tenderness (L), CVA Tenderness (R) Extremities: no edema, normal pulses, no tenderness/swelling, no clubbing, no cyanosis, no calf tenderness Peripheral Pulses: 2+: Carotid (L), Carotid (R), Radial (L), Radial (R), Posterior Tibial (L), Posterior Tibial (R), Dorsalis Pedis (L), Dorsalis Pedis ( R) Skin: warm, dry, intact Neurological: no new focal deficit Psy/Mental Status: alert, normal affect, normal mood - Problem List Review Problem List Initiated/Reviewed/Updated: Yes - My Orders Last 24 Hours: My Active Orders 01/12/17 05:00 CBC WITH AUTO DIFF [HEME] DAILY CMP [COMPREHENSIVE METABOLIC PN,CMP] [CHEM] DAILY 01/13/17 05:00 CBC WITH AUTO DIFF [HEME] DAILY CMP [COMPREHENSIVE METABOLIC PN,CMP] [CHEM] DAILY - Plan Plan:: This patient is am 86 year old male that was admitted for abdominal pain and the not being able to care for him at home. The patient has history of dementia and is unsafe at home. Patient today is alert and oriented. The patient does report he continues to have left upper quad pain. Patient denies lugo , dizziness, n, v, d, f, urinary/bowel changes. Patient labs are unremarkable and unchanged from previous. CBC unremarkable. Bun yesterday was 32, today 27. CR yesterday was 1.9, today 1.9. Will continue same treatment plan of managing pain. 01/11/17 0810 This patient is am 86 year old male that was admitted for abdominal pain and the not being able to care for him at home. The patient has history of dementia and is unsafe at home. Patient today is alert and oriented. The patient does report he continues to have left upper quad pain, but improving today. Patient denies lugo, dizziness, n, v, d, f, urinary/bowel changes. Patient labs are unremarkable. His platelets are down to 71, has chronic history of being low, will continue to monitor. CBC unremarkable. Bun yesterday was 32, today 27. CR yesterday was 1.9, today 1.8. Will continue same treatment plan of managing pain. This patient is unsafe to go home, as his can not care for him. The patient weight is up 3lbs today from yesterday. He does not exhibit edema on exam, lungs are clear. I have stopped his fluids.
[2017-01-11] MEDS: Formoterol/Mometasone 200-5 MCG 8.8 GM Inhaler IH SCH ×2 (08:57→20:08)
[2017-01-11] MEDS: Albuterol/Ipratropium 3.0-0.5 MG/3 ML Neb Soln NEB SCH ×3 (08:57→20:08)
[2017-01-11] MEDS: Tamsulosin 0.4 MG Cap.ER PO SCH (20:06)
[2017-01-12] MEDS: Levothyroxine 50 MCG Tab PO SCH (06:53)
[2017-01-12] MEDS: Enoxaparin 30 MG/0.3 ML Syringe SUBCUT SCH (08:29)
[2017-01-12] MEDS: Polyethylene Glycol 3350 Powder 17 GM Packet PO SCH (08:29)
[2017-01-12] MEDS: amLODIPine 10 MG Tab PO SCH (08:29)
[2017-01-12] MEDS: Pantoprazole 40 MG Vial IVPUSH SCH ×2 (08:31→19:34)
[2017-01-12] MEDS: Atenolol 50 MG Tab PO SCH ×2 (08:31→19:33)
[2017-01-12] MEDS: Albuterol/Ipratropium 3.0-0.5 MG/3 ML Neb Soln NEB SCH ×3 (09:46→20:43)
[2017-01-12] MEDS: Formoterol/Mometasone 200-5 MCG 8.8 GM Inhaler IH SCH ×2 (09:47→20:44)
[2017-01-12] MEDS: Calcium Carbonate/Vitamin D3 1250 MG-200 Unit Tab PO SCH ×2 (11:40→17:18)
[2017-01-12] MEDS: Tamsulosin 0.4 MG Cap.ER PO SCH (19:33)
--- NOTE | 2017-01-12 20:11 | PN ---
DATE: 01/12/2017 S: Jacob is an 86-year-old male, who was admitted to the hospital with the concerns of some abdominal pain and weakness. His did not feel she could take care of him at home any more at that point in time. He has a history of dementia and felt that he is unsafe. A complete workup was done. No abnormalities were noted. The patient is currently awaiting placement to [facility], which sounds like he is able to be transferred tomorrow. He denies any concerns and states that he is tired laying and sitting in the bed and would like to be more ambulatory. O: VITAL SIGNS: Blood pressure is 128/54, O2 is 93% on room air, respiratory rate is 17, pulse is 75, and temp is afebrile at 98.1. GENERAL: Pleasant cooperative male. He is sitting in a recliner upon my entrance into his room. He does not really appear to be in any distress at this point in time. HEENT: Grossly unremarkable. LUNGS: Clear to auscultation. I did not hear any adventitious sounds. Respirations nonlabored. CARDIAC: Regular rate and rhythm. ABDOMEN: Soft. Bowel sounds are present, normoactive. No organomegaly. No guarding or rigidity. He does have what appears to be a cystic-type circumferential lesion that is on the skin in the right upper quadrant. Nontender to the touch. EXTREMITIES: No pedal edema is noted. ASSESSMENT: 1. WEAKNESS. 2. VULNERABLE ADULT. 3. RESOLVED ABDOMINAL PAIN. P: We will look at admission to [facility] tomorrow. We will put him on calcium plus vitamin D secondary to calcium level at 7.7. We will also order physical therapy for strengthening and conditioning at this point in time. Mr. James was notified of the current treatment plan. ANCA/ROM /[id number]
[2017-01-13] MEDS: Levothyroxine 50 MCG Tab PO SCH (06:21)
[2017-01-13] MEDS: Polyethylene Glycol 3350 Powder 17 GM Packet PO SCH (07:28)
[2017-01-13] MEDS: Calcium Carbonate/Vitamin D3 1250 MG-200 Unit Tab PO SCH (07:35)
[2017-01-13] MEDS: Atenolol 50 MG Tab PO SCH (07:35)
[2017-01-13] MEDS: Pantoprazole 40 MG Vial IVPUSH SCH (07:35)
[2017-01-13] MEDS: amLODIPine 10 MG Tab PO SCH (07:36)
[2017-01-13] MEDS: Enoxaparin 30 MG/0.3 ML Syringe SUBCUT SCH (07:36)
[2017-01-13 07:41] VITALS: BP 118/58
[2017-01-13] MEDS: Albuterol/Ipratropium 3.0-0.5 MG/3 ML Neb Soln NEB SCH (09:28)
[2017-01-13] MEDS: Formoterol/Mometasone 200-5 MCG 8.8 GM Inhaler IH SCH (09:29)
--- NOTE | 2017-01-14 04:21 | DISCH ---
FINAL DIAGNOSES: 1. Generalized weakness. 2. Vulnerable adult. 3. Abdominal pain, resolved. HISTORY OF PRESENT ILLNESS: Jacob is an 86-year-old male who was initially admitted to the hospital on 01/09/2017 secondary to abdominal pain. Further evaluation was completed with no further cause of abdominal pain. Abdominal pain had resolved. He had been having some recent falls as well and some generalized weakness. was present and did not feel that she could continue to take care of him at home. He was just waiting for prison placement. LABORATORY DATA: On 01/12/2017, white blood count was 5900, hemoglobin 11.0, hematocrit of 32.6. CMP showed a creatinine of 1.8 with a BUN of 25, calcium is 7.7, AST 45, alkaline phosphatase 127. Urinalysis was negative. CT of the abdomen and pelvis was negative. Chest x-ray was stable. HOSPITAL COURSE: Jacob had an uneventful hospital stay. He has been doing quite well. He has had no setbacks, no recent fevers, no change in status. DISCHARGE MEDICATIONS: and to resume all home medications. DISCHARGE INSTRUCTIONS: Admission to [facility] today. ANCA/ROM /[id number]
== END 2017-01-13 10:45 | DRG 392 ==
LOC: CC.MS 15:15 → UNDOADMIN 15:15 → CC.MS 16:04
PROVIDERS: ADMIT Physician Assistant Medical; ATTEND Family Medicine
DX: R10.12 Left upper quadrant pain (principal); R53.1 Weakness; K59.00 Constipation, unspecified; J44.9 Chronic obstructive pulmonary disease, unspecified; J45.909 Unspecified asthma, uncomplicated; I10 Essential (primary) hypertension; R16.1 Splenomegaly, not elsewhere classified; Z87.891 Personal history of nicotine dependence; F03.90 Unspecified dementia, unspecified severity, without behavioral disturbance, psychotic disturbance, mood disturbance, and anxiety; R29.6 Repeated falls; Z79.899 Other long term (current) drug therapy; Z88.8 Allergy status to other drugs, medicaments and biological substances
CPT/HCPCS: 36415; 71020; 71250; 74176; 80053; 81001; 83735; 84443; 85025; 85610; 86140; 94640; 94640-76; 97161-GP; A9270-GY; C9113; J1650; J2270; J2405; J7030; J7120

== ENCOUNTER 2017-01-30 13:06 | Emergency (ER) | payer MEDICARE, OTHER ==
[2017-01-30 13:26] VITALS: BP 118/57
[2017-01-30] MEDS ORDERED: Morphine 2 MG/ML Syringe IVPUSH ONE ×2 (13:33→15:27)
[2017-01-30] MEDS ORDERED: Ondansetron 4 MG/2 ML SDV IVPUSH STA ×2 (13:33→15:27)
[2017-01-30] MEDS ORDERED: Sodium Chloride 0.9% 500 ML IV SCH (13:45)
--- NOTE | 2017-01-30 13:53 | EDM.PDOC ---
ED HPI GENERAL MEDICAL PROBLEM - General Chief Complaint: Gastrointestinal Problem Stated Complaint: ABD PAIN Time Seen by Provider: 01/30/17 13:20 Source of Information: Reports: Patient, Family, Senior Care Records, Old Records, RN History Limitations: Reports: Altered Mental Status - History of Present Illness INITIAL COMMENTS - FREE TEXT/NARRATIVE: This is an 86 year old demented male patient that presents to the ER via ambulance from care home. This patient is known to the facility and has a history of chronic adbominal pain with multiple tests without significant findings. The retirement reported the patient woke up this morning with an increase in abdmominal pain. It is documented that the patient did not want to go to the hospital this morning. A call was made to patient PCP. Morphine injection was ordered for patient pain. RN and myself have reviewed patient MAR , does not appear this was given today. 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 The patient is not oriented. This is his baseline dementia per at bedside. Onset: Other (Chronic, worse this morning. ) Duration: Chronic Location: Reports: Abdomen Improves with: Reports: None Worsens with: Reports: None Associated Symptoms: Reports: Loss of Appetite. Denies: Confusion, Chest Pain, Cough, cough w sputum, Diaphoresis, Fever/Chills, Headaches, Malaise, Nausea/ Vomiting, Rash, Seizure, Shortness of Breath, Syncope, Weakness Middle Abdomen Pain Score (Numeric/FACES): 7 - Related Data Allergies Allergy/AdvReac Type Severity Reaction Status Date / Time lisinopril Allergy Cough Verified 01/30/17 13:26 Home Meds: Home Meds Albuterol/Ipratropium [DuoNeb 3.0-0.5 MG/3 ML] 3 ml NEB TIDRT #30 neb 01/13/17 [ Rx] Atenolol [Tenormin] 50 mg PO BID #60 01/13/17 [Rx] Benzonatate 200 mg PO TID PRN #30 01/13/17 [Rx] Budesonide/Formoterol [Symbicort 160-4.5 MCG] 2 inh INH BID #1 01/13/17 [Rx] Levothyroxine Sodium [Levoxyl] 50 mcg PO DAILY #30 01/13/17 [Rx] Polyethylene Glycol 3350 [MiraLAX] 17 gm PO DAILY #238 gm 01/13/17 [Rx] Tamsulosin [Flomax] 0.4 mg PO BEDTIME #30 cap.er 01/13/17 [Rx] amLODIPine [Norvasc] 10 mg PO DAILY #30 01/13/17 [Rx] traMADol HCl [Tramadol HCl] 1 - 2 tab PO Q6H PRN #120 01/13/17 [Rx] Past Medical History HEENT History: Reports: Cataract, Macular Degeneration Cardiovascular History: Reports: None Respiratory History: Reports: COPD Gastrointestinal History: Reports: Bowel Obstruction Genitourinary History: Reports: UTI, Recurrent Musculoskeletal History: Reports: None Neurological History: Reports: Alzheimers Disease Psychiatric History: Reports: Dementia, Depression Endocrine/Metabolic History: Reports: None Hematologic History: Reports: None Immunologic History: Reports: None Oncologic (Cancer) History: Reports: None Dermatologic History: Reports: None - Past Surgical History GI Surgical History: Reports: Hernia, Inguinal Social & Family History - Family History Family Medical History: Unobtainable - Tobacco Use Smoking Status *Q: Never Smoker Years of Tobacco use: 40 Packs/Tins Daily: 1 Used Tobacco, but Quit: Yes Month Tobacco Last Used: 10 years ago - Caffeine Use Caffeine Use: Reports: None - Alcohol Use Days Per Week of Alcohol Use: 7 Number of Drinks Per Day: 1 Total Drinks Per Week: 7 - Recreational Drug Use Recreational Drug Use: No ED ROS GENERAL - Review of Systems Review Of Systems: See Below Constitutional: Reports: No Symptoms HEENT: Reports: No Symptoms Respiratory: Reports: No Symptoms Cardiovascular: Reports: No Symptoms Endocrine: Reports: No Symptoms GI/Abdominal: Reports: Abdominal Pain : Reports: No Symptoms Musculoskeletal: Reports: No Symptoms Skin: Reports: No Symptoms Neurological: Reports: No Symptoms Psychiatric: Reports: No Symptoms Hematologic/Lymphatic: Reports: No Symptoms Immunologic: Reports: No Symptoms ED EXAM, GI/ABD - Physical Exam Exam: See Below Exam Limited By: No Limitations General Appearance: Alert, WD/WN, No Apparent Distress Ears: Normal External Exam, Normal Canal, Hearing Grossly Normal, Normal TMs Nose: Normal Inspection, Normal Mucosa, No Blood Throat/Mouth: Normal Inspection, Normal Lips, Normal Gums, Normal Oropharynx, Normal Voice, No Airway Compromise Head: Atraumatic, Normocephalic Neck: Normal Inspection, Supple, Non-Tender, Full Range of Motion Respiratory/Chest: No Respiratory Distress, Lungs Clear, Normal Breath Sounds, No Accessory Muscle Use, Chest Non-Tender Cardiovascular: Normal Peripheral Pulses, Regular Rate, Rhythm, No Edema, No Gallop, No JVD, No Murmur, No Rub GI/Abdominal: Normal Bowel Sounds, Soft, No Organomegaly, No Distention, No Abnormal Bruit, Pelvis Stable, Tenderness (LLQ with grimace. ). No: Guarding, Rebound, Rigidity Back Exam: Normal Inspection, Full Range of Motion Extremities: Normal Inspection, Normal Range of Motion, Non-Tender, No Pedal Edema, Normal Capillary Refill Neurological: Alert. No: Oriented (dementia, baseline. ) Psychiatric: Normal Affect, Normal Mood Skin Exam: Warm, Dry, Intact, Normal Color, No Rash Lymphatic: No Adenopathy Course - Vital Signs Last Recorded V/S: Last Vital Signs Temp 98.7 F 01/30/17 13:20 Pulse 77 01/30/17 13:20 Resp 20 01/30/17 13:20 BP 118/57 L 01/30/17 13:20 Pulse Ox 92 L 01/30/17 13:20 - Orders/Labs/Meds Orders: Active Orders 24 hr Category Date Time Status URINALYSIS W/MICROSCOPIC [UA W/MICROSCOPIC] [URIN] Stat Lab 01/30/17 13:32 Uncollected Morphine Med 01/30/17 15:27 Once 2 mg IVPUSH ONETIME ONE Ondansetron [Zofran] Med 01/30/17 15:27 Stat 4 mg IVPUSH NOW STA Sodium Chloride 0.9% [Normal Saline] 500 ml Med 01/30/17 13:45 Active IV .BOLUS Medication Orders Sodium Chloride (Normal Saline) 500 mls @ 500 mls/hr IV .BOLUS ALEX Last Admin: 01/30/17 14:07 Dose: 500 mls/hr Labs: Laboratory Tests 01/30/17 01/30/17 Range/Units 13:32 13:32 WBC 7.8 (5.0-10.0) 10^3/uL RBC 3.60 L (4.50-6.00) 10^6/uL Hgb 10.9 L (14.0-18.0) g/dL Hct 32.5 L (40.0-54.0) % MCV 90.3 (82.0-94.0) fL MCH 30.3 (27.0-32.0) pg MCHC 33.5 (33.0-38.0) g/dL RDW Coeff of Flor 19.2 H (11.0-15.0) % Plt Count 54 L (150-400) 10^3/uL Neut % (Auto) 69.4 (35-85) % Lymph % (Auto) 17.6 (10-55) % [place] % (Auto) 10.4 (0-16) % Eos % (Auto) 2.3 (0-5) % Baso % (Auto) 0.3 (0-3) % Neut # (Auto) 5.42 (1.80-7.00) 10^3/uL Lymph # (Auto) 1.37 (1.00-4.80) 10^3/uL [place] # (Auto) 0.81 H (0.00-0.80) 10^3/uL Eos # (Auto) 0.18 (0.00-0.45) 10^3/uL Baso # (Auto) 0.02 10^3/uL Sodium 139 (136-145) mEq/L Potassium 3.8 (3.5-5.0) mEq/L Chloride 106 (98-106) mEq/L Carbon Dioxide 23 (21-32) mmol/L BUN 25 H (7-18) mg/dL Creatinine 1.8 H (0.7-1.3) mg/dL Est Cr Clr Drug Dosing 23.71 mL/min Estimated GFR (MDRD) 36 L (>=60) mL/min Glucose 145 H (75-99) mg/dL Calcium 8.9 (8.4-10.1) mg/dL Total Bilirubin 0.8 (0.0-1.0) mg/dL AST 58 H (15-37) U/L ALT 37 (12-78) U/L Alkaline Phosphatase 130 H (46-116) U/L Total Protein 5.8 L (6.4-8.2) g/dL Albumin 2.3 L (3.4-5.0) g/dL Meds: Medications Generic Name Dose Route Start Last Admin Trade Name Freq PRN Reason Stop Dose Admin Sodium Chloride 500 mls @ 500 mls/hr 01/30/17 13:45 01/30/17 14:07 Normal Saline IV 500 mls/hr .BOLUS ALEX Administration Discontinued Medications Generic Name Dose Route Start Last Admin Trade Name Anabel PRVj Reason Stop Dose Admin Morphine Sulfate 2 mg 01/30/17 13:33 01/30/17 13:59 Morphine IVPUSH 01/30/17 13:34 2 mg ONETIME ONE Administration Ondansetron HCl 4 mg 01/30/17 13:33 01/30/17 14:03 Zofran IVPUSH 01/30/17 13:34 4 mg NOW STA Administration - Re-Assessments/Exams Free Text/Narrative Re-Assessment/Exam: 01/30/17 15:29 Patient is resting quietly after pain medication. I have discussed with the family patient previous imaging results and their wishes and expectations. They wish to keep him comfortable and not have aggressive treatment. They wish to speak to hospice. This RN is with family now. I will discharge this patient. Departure - Departure Time of Disposition: 15:28 Disposition: Home, Self-Care 01 Condition: good Clinical Impression: Abdominal pain - Discharge Information Instructions: Abdominal Pain, Adult, [id number] Forms: ED Department Discharge Additional Instructions: Followup with your primary care provider Follow your primary care orders Give Morphine that was prescribed this morning as directed Return to the ER for Emergencies - My Orders Last 24 Hours: My Active Orders 01/30/17 13:32 URINALYSIS W/MICROSCOPIC [UA W/MICROSCOPIC] [URIN] Stat 01/30/17 13:45 Sodium Chloride 0.9% [Normal Saline] 500 ml IV .BOLUS 01/30/17 15:27 Morphine 2 mg IVPUSH ONETIME ONE Ondansetron [Zofran] 4 mg IVPUSH NOW STA - Assessment/Plan Last 24 Hours: My Active Orders 01/30/17 13:32 URINALYSIS W/MICROSCOPIC [UA W/MICROSCOPIC] [URIN] Stat 01/30/17 13:45 Sodium Chloride 0.9% [Normal Saline] 500 ml IV .BOLUS 01/30/17 15:27 Morphine 2 mg IVPUSH ONETIME ONE Ondansetron [Zofran] 4 mg IVPUSH NOW STA Plan: PLEASE SEE RN NOTE FOR PFSH.
== END 2017-01-30 15:50 | disposition home or self-care (01) ==
LOC: CC.ED 13:06
DX: R10.32 Left lower quadrant pain (principal); J44.9 Chronic obstructive pulmonary disease, unspecified; F32.9 Major depressive disorder, single episode, unspecified; F03.90 Unspecified dementia, unspecified severity, without behavioral disturbance, psychotic disturbance, mood disturbance, and anxiety; Z88.8 Allergy status to other drugs, medicaments and biological substances; Z79.899 Other long term (current) drug therapy; Z87.440 Personal history of urinary (tract) infections
CPT/HCPCS: 36415; 80053; 85025; 96361; 96374; 96375; 96376; 99284; J2270; J2405; J7040